=== PATIENT | male | born 1970 | race Caucasian/White ===

== ENCOUNTER 2016-09-22 08:20 | Inpatient (IN) ==
[2016-09-22] MEDS ORDERED: HYDROmorphone 2 MG/1 ML VIAL IV STA ×4 (08:43→15:25)
[2016-09-22] MEDS ORDERED: DIPH/TET/ACEL PERT BOOSTER VACCINE 0.5 ML VIAL IM ONE ×2 (08:43→08:54)
[2016-09-22] MEDS ORDERED: ONDANSETRON 4 MG/2 ML VIAL IV STA ×2 (08:43→10:03)
[2016-09-22] MEDS ORDERED: ONDANSETRON 4 MG/2 ML VIAL ONE ×3 (08:43→15:58)
[2016-09-22] MEDS ORDERED: HYDROmorphone 2 MG/1 ML VIAL ONE ×4 (08:43→15:21)
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
[2016-09-22 09:04] LABS: Apearance,Urine CLEAR (Clear); Basophils % 0.3 % (0.0-0.8); Bilirubin,Urine Negative (Negative); Blood, Urine Negative (Negative); Eosinophils # 0.2 10*3/uL (0.0-0.87); Eosinophils % 2.1 % (0.00-10.9); Glucose,Urine (UA) Negative (Negative); Hematocrit 44.8 VOL% (42.0-52.0); Hemoglobin 15.1 GM/DL (14.0-18.0); Immature Granulocytes % 0.6 %; Immature Granulocytes Absolute 0.06 #; Ketones,Urine Negative (Negative); Lymphocytes # 1.7 10*3/uL (1.4-4.0); Mean Corpuscular HGB Conc 33.7 GM/DL (32-36); Mean Corpuscular Hemoglobin 29 PG (27-34); Mean Corpuscular Volume 85.5 FL (87-102); Monocytes # 1.1 10*3/uL (0.11-0.8); Monocytes % 11.3 % (1.7-12.7); Neutrophils # 6.6 10*3/uL (1.4-7.4); Neutrophils % 67.7 % (38.7-73.9); Nitrite,Urine Negative (Negative); Platelet Count 306 T/CUMM (130-400); Protein,Urine Negative; RBC,Urine <1 /HPF (0-4); Red Blood Count 5.24 MC/CUMM (3.8-5.5); Red Cell Distribution Width 12.7 % (9.3-17.3); Urine Color Yellow (Yellow); Urine Specific Gravity 1.006 (1.001-1.035); Urine Urobilinogen < 2.0 EU/DL (0.2-1.0); WBC,Urine <1 /HPF (0-6); White Blood Count 9.7 T/CUMM (4-12)
[2016-09-22 09:18] LABS: PT Patient Result 10.4 SECS; Partial Thromboplastin Time 25.8 SECS (0-40)
[2016-09-22 09:27] LABS: Barbiturates Screen,Urine Negative (Negative); Benzodiazepines Screen,Urine Negative (Negative); Cannabinoid Screen,Urine Negative (Negative); Opiate Screen,Urine Negative (Negative); Phencyclidine Screen,Urine Negative (Negative)
[2016-09-22 09:34] LABS: Alanine Aminotransferase 40 U/L (16-61); Albumin 4.1 G/DL (3.4-5.0); Alkaline Phosphatase 84 U/L (45-117); Amylase 41 U/L (25-115); Aspartate Amino Transferase 16 U/L (0-37); Blood Urea Nitrogen 9 MG/DL (7-18); Glucose 110 MG/DL (74-106); Osmolality,Calculated 278.4 MOS/KG (273-304); Potassium 4.3 MMOL/L (3.5-5.1); Sodium 140 MMOL/L (136-145); Total Protein 6.7 G/DL (6.4-8.3)
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
[2016-09-22] MEDS ORDERED: ceFAZolin 2,000 MG in PREMIX 1 EACH IV ONE (12:08)
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
--- NOTE | 2016-09-22 12:38 | EKG Report ---
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
[2016-09-22] MEDS ORDERED: LACTATED RINGERS 1,000 ML IV SCH (13:30)
[2016-09-22] MEDS ORDERED: ACETAMINOPHEN 500 MG TABLET PO ONE (15:25)
[2016-09-22] MEDS ORDERED: GABAPENTIN 400 MG CAPSULE PO ONE (15:26)
[2016-09-22] MEDS ORDERED: ACETAMINOPHEN 500 MG TABLET ONE (15:30)
[2016-09-22] MEDS ORDERED: GABAPENTIN 400 MG CAPSULE ONE (15:30)
[2016-09-22] MEDS ORDERED: PROPOFOL 200 MG/20 ML VIAL IV ONE (15:58)
[2016-09-22] MEDS ORDERED: KETOROLAC 30 MG/1 ML VIAL ONE (15:58)
[2016-09-22] MEDS ORDERED: LIDOCAINE 2% 5 ML VIAL ONE (15:58)
[2016-09-22] MEDS ORDERED: MAGNESIUM HYDROXIDE SUSP 30 ML UDCUP PO PRN (17:32)
[2016-09-22] MEDS ORDERED: ACETAMINOPHEN 325 MG TABLET PO PRN (17:32)
--- NOTE | 2016-09-22 17:48 | Anesthesia ---
Anesthesia Post OP - Post Ansesthetic Evaluation Patient seen in post op: Yes Resp: within normal limits CV: within normal limits Mental: within normal limits Temp: within normal limits [id number]: within normal limits Nausea and Vomiting: within normal limits Pain: within normal limits
[2016-09-22] MEDS ORDERED: SEVOFLURANE 1 UNIT/15 MINUTE INH ONE (17:49)
[2016-09-22] MEDS ORDERED: MIDAZOLAM 2 MG/2 ML VIAL ONE (17:50)
[2016-09-22] MEDS ORDERED: LACTATED RINGERS 1,000 ML IV ONE (17:50)
[2016-09-22] MEDS ORDERED: fentaNYL 100 MCG/2 ML VIAL ONE (17:50)
[2016-09-22] MEDS ORDERED: MORPHINE PCA 30 MG/30 ML SYRINGE IV SCH (18:00)
[2016-09-22] MEDS ORDERED: MORPHINE PCA 30 MG/30 ML SYRINGE IV ONE (18:10)
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
--- NOTE | 2016-09-22 18:45 | XRay Report ---
Exam: XR knee 2V RT Date: 09/22/2016 5:34 PM Indication: Postop Comparison: CT earlier today and intraoperative films Technical AP lateral Findings: Side plate and threaded screws have been placed to stabilize the comminuted tibial plateau fracture surgical clips are present laterally. The fibula is intact. No new fracture present. Patella is unremarkable. Impression: Stabilized tibial plateau fracture with sideplate and screws with surgical clips present without new fracture. PROCEDURE INTERPRETED AT [facility] DEPARTMENT OF RADIOLOGY Final Report Signed by: Dr. Cj Gonsalez
[2016-09-22] MEDS: ALBUTEROL 2.5 MG/3 ML NEB RESP TX SCH (20:23)
[2016-09-22] MEDS: BUDESONIDE/FORMOTEROL 160-4.5 INHALER 6 GM INH SCH (21:44)
[2016-09-22] MEDS: PANTOPRAZOLE 40 MG TABLET PO SCH (21:46)
[2016-09-22] MEDS: LACTATED RINGERS 1,000 ML IV SCH (21:46)
[2016-09-22] MEDS: ACETAMINOPHEN 500 MG TABLET PO SCH (21:46)
[2016-09-22] MEDS: ceFAZolin 2,000 MG in PREMIX 1 EACH IV SCH (23:20)
[2016-09-23] MEDS: ALBUTEROL 2.5 MG/3 ML NEB RESP TX SCH ×4 (00:07→19:52)
[2016-09-23] MEDS: ACETAMINOPHEN 500 MG TABLET PO SCH ×3 (03:01→14:33)
[2016-09-23] MEDS: LACTATED RINGERS 1,000 ML IV SCH (05:08)
[2016-09-23 06:07] LABS: Basophils % 0.1 % (0.0-0.8); Eosinophils # 0.1 10*3/uL (0.0-0.87); Eosinophils % 1.2 % (0.00-10.9); Hematocrit 38.6 VOL% (42.0-52.0); Immature Granulocytes % 0.5 %; Immature Granulocytes Absolute 0.05 #; Lymphocytes # 1.7 10*3/uL (1.4-4.0); Lymphocytes % 16.9 % (21.2-54.2); Mean Corpuscular HGB Conc 32.1 GM/DL (32-36); Mean Corpuscular Hemoglobin 28 PG (27-34); Mean Corpuscular Volume 88.5 FL (87-102); Mean Platelet Volume 10.4 FL (9.6-12.0); Monocytes # 1.3 10*3/uL (0.11-0.8); Monocytes % 12.8 % (1.7-12.7); Neutrophils # 6.8 10*3/uL (1.4-7.4); Neutrophils % 68.5 % (38.7-73.9); Platelet Count 246 T/CUMM (130-400); Red Blood Count 4.36 MC/CUMM (3.8-5.5); Red Cell Distribution Width 12.9 % (9.3-17.3)
[2016-09-23 06:18] LABS: Hemoglobin 12.4 GM/DL (14.0-18.0)
[2016-09-23 06:33] LABS: Osmolality,Calculated 281.4 MOS/KG (273-304)
[2016-09-23] MEDS: ceFAZolin 2,000 MG in PREMIX 1 EACH IV SCH (06:33)
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
[2016-09-23] MEDS: PANTOPRAZOLE 40 MG TABLET PO SCH ×2 (08:39→21:20)
[2016-09-23] MEDS: MONTELUKAST 10 MG TABLET PO SCH (08:39)
[2016-09-23] MEDS: BUDESONIDE/FORMOTEROL 160-4.5 INHALER 6 GM INH SCH ×2 (08:40→21:19)
[2016-09-23] MEDS: ENOXAPARIN 40 MG/0.4 ML SYRINGE SUBCUT SCH (10:47)
--- NOTE | 2016-09-23 11:49 | Orthopedic Progress Note ---
Assessment and Plan (1) Tibial plateau fracture, right Status: Acute Assessment and plan: Continue PT twice daily Pain control DVT prophylaxis Plan to discharge home tomorrow or Current Visit: Yes Qualifiers: Encounter type: initial encounter Fracture type: closed Qualified Code(s) : S82.141A - Displaced bicondylar fracture of right tibia, initial encounter for closed fracture (2) Right acetabular fracture Status: Acute Assessment and plan: I also discussed the right acetabular fracture with the family in detail. Alignment is anatomic with minimal marginal impaction. It also appears to be below the weightbearing portion of the dome. Have recommended nonoperative management with restricted weightbearing for 6-8 weeks. Risks and benefits were discussed here as well. Current Visit: Yes Qualifiers: Encounter type: initial encounter Sublocation of acetabulum: posterior wall Fracture type: closed Fracture alignment: nondisplaced Qualified Code (s): S32.424A - Nondisplaced fracture of posterior wall of right acetabulum, initial encounter for closed fracture Orthopedics - Subjective Interval history: Patient has some difficulty with therapy today. He had more pain in the hip and in the knee. On exam his dressings clean and dry, is neurovascular intact in the right foot. Exam - Constitutional Vitals: Period Temp Pulse Resp BP Sys/Norman Pulse Ox Last 24 Hr 97.7 F-99.0 F 74-118 16-20 102-143/61-89 93-100 Results - Labs CBC & BMP: 09/23/16 05:26 09/23/16 05:26 Specialty Discharge - Follow Up or Referrals Follow up with: Baldomero Tabor MD [Physician] - 10/07/16 8:20 am
[2016-09-23] MEDS: MORPHINE 2 MG/1 ML SYRINGE IV PRN ×2 (13:45→17:07)
[2016-09-24] MEDS: ALBUTEROL 2.5 MG/3 ML NEB RESP TX SCH ×4 (00:26→19:31)
[2016-09-24] MEDS: MORPHINE 2 MG/1 ML SYRINGE IV PRN ×4 (01:04→18:02)
[2016-09-24 07:15] LABS: Basophils % 0.2 % (0.0-0.8); Eosinophils # 0.2 10*3/uL (0.0-0.87); Eosinophils % 1.8 % (0.00-10.9); Hematocrit 38.7 VOL% (42.0-52.0); Hemoglobin 12.6 GM/DL (14.0-18.0); Immature Granulocytes % 0.4 %; Immature Granulocytes Absolute 0.04 #; Lymphocytes # 1.9 10*3/uL (1.4-4.0); Lymphocytes % 20.9 % (21.2-54.2); Mean Corpuscular HGB Conc 32.6 GM/DL (32-36); Mean Corpuscular Hemoglobin 28 PG (27-34); Mean Corpuscular Volume 86.8 FL (87-102); Mean Platelet Volume 10.6 FL (9.6-12.0); Monocytes # 1.5 10*3/uL (0.11-0.8); Monocytes % 15.9 % (1.7-12.7); Neutrophils # 5.6 10*3/uL (1.4-7.4); Neutrophils % 60.8 % (38.7-73.9); Platelet Count 251 T/CUMM (130-400); Red Blood Count 4.46 MC/CUMM (3.8-5.5); Red Cell Distribution Width 12.8 % (9.3-17.3); White Blood Count 9.3 T/CUMM (4-12)
[2016-09-24 07:41] LABS: Eosinophils 1 % (0-10); Hypochromasia 1+; Lymphocytes 21 % (20-55); Ovalocytes Slight; Platelet Estimate Adequate; Segmented Neutrophils 60 % (50-85); Total Cells Counted 100
[2016-09-24] MEDS: PANTOPRAZOLE 40 MG TABLET PO SCH ×2 (08:42→21:51)
[2016-09-24] MEDS: MONTELUKAST 10 MG TABLET PO SCH (08:42)
[2016-09-24] MEDS: BUDESONIDE/FORMOTEROL 160-4.5 INHALER 6 GM INH SCH ×2 (08:43→21:52)
--- NOTE | 2016-09-24 09:14 | Orthopedic Progress Note ---
Orthopedics - Subjective Interval history: Mr Sol is a little better today. Still sore and progressing slowly with therapy. He was only able to get to the door yesterday. He is asking regarding removal of his knee immobilizer. His dressing is clean, dry and intact. He can flex and extend his toes and ankle. EHL 5 out of 5. No pain with passive and active range of motion of his toes. Sensation is intact to light touch to his first dorsal webspace, plantar dorsal aspects of his foot. 2+ dorsalis pedis pulse. Capillary refill is less than 2 seconds. Plan: Continue with physical therapy. He is to address the instructions for the knee immobilizer on Dr. Tabor's rounds Exam - Constitutional Vitals: Period Temp Pulse Resp BP Sys/Norman Pulse Ox Last 24 Hr 96.7 F-100.2 F 85-119 19-20 124-150/68-87 90-99 Results - Labs CBC & BMP: 09/24/16 06:28 09/23/16 05:26 Specialty Discharge - Follow Up or Referrals Follow up with: Baldomero Tabor MD [Physician] - 10/07/16 8:20 am
[2016-09-24] MEDS: ENOXAPARIN 40 MG/0.4 ML SYRINGE SUBCUT SCH (13:05)
[2016-09-25] MEDS: ALBUTEROL 2.5 MG/3 ML NEB RESP TX SCH ×4 (00:33→20:18)
[2016-09-25] MEDS: MORPHINE 2 MG/1 ML SYRINGE IV PRN ×4 (01:40→19:26)
[2016-09-25 06:13] LABS: Basophils % 0.1 % (0.0-0.8); Eosinophils # 0.3 10*3/uL (0.0-0.87); Eosinophils % 3.6 % (0.00-10.9); Hematocrit 39.1 VOL% (42.0-52.0); Hemoglobin 12.7 GM/DL (14.0-18.0); Immature Granulocytes % 0.5 %; Immature Granulocytes Absolute 0.05 #; Lymphocytes # 1.5 10*3/uL (1.4-4.0); Lymphocytes % 16.4 % (21.2-54.2); Mean Corpuscular HGB Conc 32.5 GM/DL (32-36); Mean Corpuscular Hemoglobin 29 PG (27-34); Mean Corpuscular Volume 88.9 FL (87-102); Mean Platelet Volume 10.2 FL (9.6-12.0); Monocytes # 1.1 10*3/uL (0.11-0.8); Monocytes % 11.6 % (1.7-12.7); Neutrophils # 6.2 10*3/uL (1.4-7.4); Neutrophils % 67.8 % (38.7-73.9); Platelet Count 265 T/CUMM (130-400); Red Cell Distribution Width 12.5 % (9.3-17.3); White Blood Count 9.2 T/CUMM (4-12)
--- NOTE | 2016-09-25 07:55 | Orthopedic Progress Note ---
Assessment and Plan (1) Tibial plateau fracture, right Status: Acute Assessment and plan: Repeat pelvis x-ray Continue PT Adjust pain meds Discharge planning Current Visit: Yes Qualifiers: Encounter type: initial encounter Fracture type: closed Qualified Code(s) : S82.141A - Displaced bicondylar fracture of right tibia, initial encounter for closed fracture (2) Right acetabular fracture Status: Acute Assessment and plan: I also discussed the right acetabular fracture with the family in detail. Alignment is anatomic with minimal marginal impaction. It also appears to be below the weightbearing portion of the dome. Have recommended nonoperative management with restricted weightbearing for 6-8 weeks. Risks and benefits were discussed here as well. Current Visit: Yes Qualifiers: Encounter type: initial encounter Sublocation of acetabulum: posterior wall Fracture type: closed Fracture alignment: nondisplaced Qualified Code (s): S32.424A - Nondisplaced fracture of posterior wall of right acetabulum, initial encounter for closed fracture Orthopedics - Subjective Interval history: Patient still complains of pain mostly in the right hip, he also has some popping. His therapy has been significantly limited secondary to his pain. On exam he is neurovascular intact in the right lower extremity. His knee incisions are clean and dry Exam - Constitutional Vitals: Period Temp Pulse Resp BP Sys/Norman Pulse Ox Last 24 Hr 97.1 F-98.6 F 89-103 16-20 136-149/72-87 92-97 Results - Labs CBC & BMP: 09/25/16 05:50 09/23/16 05:26 Specialty Discharge - Follow Up or Referrals Follow up with: Baldomero Tabor MD [Physician] - 10/07/16 8:20 am
[2016-09-25] MEDS: PANTOPRAZOLE 40 MG TABLET PO SCH ×2 (09:34→20:35)
[2016-09-25] MEDS: BUDESONIDE/FORMOTEROL 160-4.5 INHALER 6 GM INH SCH ×2 (09:34→20:35)
[2016-09-25] MEDS: oxyCODONE ER 10 MG TABLET PO SCH ×2 (09:34→20:36)
[2016-09-25] MEDS: MONTELUKAST 10 MG TABLET PO SCH (09:34)
--- NOTE | 2016-09-25 12:40 | XRay Report ---
Exam: XR pelvis complete 3V Date: 09/25/2016 8:20 AM Indication: Pain in the acetabular regions Comparison: Routine radiographs and CT scan of the pelvis Technical: AP and bilateral oblique views of the pelvis Findings: Examination reveals a fracture of the right posterior acetabulum present femoral head and neck regions are intact on the right the pubic rami are unremarkable the right. The left femoral head and neck region and left acetabulum are intact. Phleboliths are present. The iliac wings and sacrum are intact. Impression: 1. Curvilinear lucency in the posterior right acetabulum consistent with a nondisplaced fracture. PROCEDURE INTERPRETED AT [facility] DEPARTMENT OF RADIOLOGY Final Report Signed by: Dr. Cj Gonsalez
--- NOTE | 2016-09-25 13:10 | CT Report ---
Exam: CT pelvis wo con Date: 09/25/2016 10:48 AM Comparison: 09/22/2016 Indication: Acetabular fracture Total DLP: 439 mGy*cm Technical: Axial sagittal and coronal imaging was obtained through the bony pelvis without contrast. Dose reduction was performed with decreasing kv and mA and automated exposure Findings: Examination reveals a fracture of the posterior column of the right acetabulum extending medially. The right femoral head and greater lesser trochanteric region and femoral neck are intact. The anterior column of the right acetabulum is intact. The superior inferior pubic ramus are intact on the right. The sacrum is unremarkable. SI joints intact the right iliac wing is intact. The left pubic rami femoral head and neck region anterior and posterior column of acetabulum and iliac wing unremarkable. Moderate fecal debris present in the colon. The exam reveals multiple phleboliths in the true pelvis. No obvious pelvic sidewall hematoma clearly delineated Impression: 1. Persistent right posterior column acetabular fracture with vertical medial component extension of the fracture which is similar to the previous examination. Fracture is nondisplaced. No new fractures present. PROCEDURE INTERPRETED AT [facility] DEPARTMENT OF RADIOLOGY Final Report Signed by: Dr. Cj Gonsalez
[2016-09-25] MEDS: ENOXAPARIN 40 MG/0.4 ML SYRINGE SUBCUT SCH (14:18)
--- NOTE | 2016-09-25 17:02 | Event Note ---
Patient still having significant pain in the right hip with any sort of motion, it is severely limiting his ability to mobilize and ambulate with therapy. Repeat radiographs and CT scan show no change in position of the minimally displaced posterior wall acetabulum fracture. Discussed discharge options with the patient. He may actually to be discharged to swing bed if we can't get him any more mobile here at the hospital. Due to his pain and decreased mobilization, we will get a changes admission status to inpatient.
[2016-09-26] MEDS: ALBUTEROL 2.5 MG/3 ML NEB RESP TX SCH ×2 (00:49→07:03)
[2016-09-26] MEDS: MORPHINE 2 MG/1 ML SYRINGE IV PRN (06:29)
[2016-09-26] MEDS: PANTOPRAZOLE 40 MG TABLET PO SCH (09:11)
[2016-09-26] MEDS: MONTELUKAST 10 MG TABLET PO SCH (09:12)
[2016-09-26] MEDS: oxyCODONE ER 10 MG TABLET PO SCH (09:12)
[2016-09-26] MEDS: BUDESONIDE/FORMOTEROL 160-4.5 INHALER 6 GM INH SCH (09:20)
[2016-09-26 11:45] VITALS: BP 149/86
== END 2016-09-26 13:05 | disposition home or self-care (01) | DRG 492 ==
LOC: EDUNIT# → EDBD → N.ED 08:20 → N.3E 11:09 → N.ED 11:09 → N.SDSINP 11:17 → N.3E 19:39
PROVIDERS: ADMIT Orthopaedic Surgery; ATTEND Orthopaedic Surgery